=== PATIENT | male | born 1955 | race Caucasian/White ===

== ENCOUNTER 2021-08-26 06:11 | Emergency (ER) | payer OTHER, MEDICARE ==
[~2021-08-26] VITALS: Ht 188 cm; Wt 117.9 kg
[~2021-08-26 06:11] MED LIST: ASPIR 8181 MG PO; ASPIRIN325 PO; AUGMENTIN 875875 MG PO; CARDIZEM CD180 MG PO; CARDIZEM CD240 MG PO; ELIQUIS5 MG PO
[2021-08-26] MEDS ORDERED: LEVOTHYROXINE150 MC1 PO (06:26)
[2021-08-26] MEDS ORDERED: LOPRESSOR50 MG PO (06:27)
[2021-08-26] MEDS ORDERED: LIPITOR 20 MG T20 M1 PO (06:31)
[2021-08-26] MEDS ORDERED: FLOMAX0.4 MG PO (06:35)
[2021-08-26] MEDS ORDERED: CARTIA XT240 M1 PO (06:36)
[2021-08-26] MEDS ORDERED: ZETIA10 MG PO (06:37)
[2021-08-26 07:04] LABS: URINE BILIRUBIN NEGATIVE (Negative); URINE BLOOD TRACE (Negative); URINE CLARITY CLEAR; URINE COLOR YELLOW; URINE GLUCOSE-RANDOM NEGATIVE (Negative); URINE KETONES NEGATIVE (Negative); URINE LEUKOCYTES-REFLEX NEGATIVE (Negative); URINE NITRITE-REFLEX NEGATIVE (Negative); URINE PROTEIN 1+ (Negative); URINE SPECIFIC GRAVITY 1.025 (1.005-1.030); URINE UROBILINOGEN 0.2 E.U./dl (0.2-1.0)
[2021-08-26 07:05] LABS: ABSOLUTE BASOPHILS 0.1 thou/uL (0.0-0.2); ABSOLUTE EOSINOPHILS 0.1 thou/uL (0.0-0.7); ABSOLUTE LYMPHOCYTES 1.4 thou/uL (0.8-5.3); ABSOLUTE MONOCYTES 0.5 thou/uL (0.0-1.2); ABSOLUTE NEUTROPHILS 5.4 thou/uL (1.6-8.1); BASOPHILS 0.8 %; EOSINOPHILS 1.5 %; HEMATOCRIT 46.2 % (42.0-52.0); HEMOGLOBIN 15.2 gm/dL (14.0-18.0); LYMPHOCYTES 18.3 %; MONOCYTES 6.8 %; MPV 9.1 fl. (7.2-11.1); NUCLEATED RBCS 0 /100WBC; PLATELET COUNT* 165 thou/uL (150-400); POLYS 72.6 %; RBC 4.92 mil/uL (4.50-6.00); RDW-CV 13.5 % (10.5-14.5); WBC 7.5 thou/uL (4.0-11.0)
[2021-08-26 07:17] LABS: APTT 29.1 Seconds (25.0-31.3); INR 1.1; PROTIME 10.9 Seconds (9.20-11.50)
[2021-08-26 07:37] LABS: CALCIUM 9.2 mg/dL (8.5-10.1); CREATININE 0.8 mg/dL (0.6-1.3); POTASSIUM 5.6 mmol/L (3.5-5.1)
[2021-08-26 07:48] LABS: ALBUMIN 4.1 g/dL (3.4-5.0); TOTAL BILIRUBIN 0.7 mg/dL (<0.1-1.0); TOTAL PROTEIN 7.8 g/dL (6.4-8.2)
[2021-08-26 10:04] VITALS: BP 164/88
--- NOTE | 2021-08-26 11:42 | EKG ---
[place] [address] ELECTROCARDIOGRAM REPORT Name: ROSSANA MCKEON Room: 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[place] : 1955 Requested By: Anel Walton Order Number: [id number] MD: Jeff Reyes Measurements Intervals [place] Rate: 90 P: [place]: QRS: 10 QRSD: 94 T: 9 QT: 372 QTc: 455 Interpretive Statements Atrial fibrillation Compared to ECG 08/30/2016 14:26:06 Myocardial infarct finding no longer present Prolonged QT interval no longer present Electronically Signed On 08-26-2021 11:42:26 [employer] by Jeff Reyes [email or web address] <ELECTRONICALLY SIGNED> By: Jeff Reyes MD, FACC 08/26/21 1142 3 3 Jeff Reyes MD, [facility] /EPI
== END 2021-08-26 10:06 | disposition short-term general hospital (02) ==
LOC: M.ERS 06:11
PROVIDERS: Personal Emergency Response Attendant
DX: I71.4 Abdominal aortic aneurysm, without rupture (principal); Z20.822 Contact with and (suspected) exposure to COVID-19; R10.31 Right lower quadrant pain; M54.50 Low back pain, unspecified; R61 Generalized hyperhidrosis; I10 Essential (primary) hypertension; I48.91 Unspecified atrial fibrillation; E66.9 Obesity, unspecified; Z68.33 Body mass index [BMI] 33.0-33.9, adult; Z90.89 Acquired absence of other organs; Z79.899 Other long term (current) drug therapy